=== PATIENT | female | born 1960 | race Caucasian/White ===

== ENCOUNTER → 2017-01-11 | Outpatient (CLI) | payer OTHER ==
[~2017-01-11] MED LIST: AMLODIPINE BESY10 MG PO; AMOXICILLIN500 M1 PO; ASPIRIN EC81 M1 PO; BENZONATATE PO; CINNAMON BARK1 GM; CINNAMON PO; FISH OIL 1,001000 MG PO; FUROSEMIDE40 MG PO; GLUCOTROL PO; HYDRALAZINE HCL50 MG PO; KIONEX PO; LOVASTATIN20 M2 PO; METOPROLOL TAR100 MG PO; OMEPRAZOLE20 M1 PO; PRINIVIL20 M1 PO; ZYLOPRIM100 MG PO
[2017-01-11 15:31] LABS: ALBUMIN SERUM 4.4 g/dL (3.5-5.0); BILIRUBIN,TOTAL 0.7 mg/dL (0.2-2.0); BUN/CREATININE RATIO 17.4; CALCIUM SERUM 12.3 mg/dL (8.4-10.2); CREATININE SERUM 2.7 mg/dL (0.6-1.4); GLOM FILT RATE Estimated 18.7 mL/min (>60); PHOSPHOROUS 3.7 mg/dL (2.5-4.6); POTASSIUM 3.9 mmol/L (3.5-5.1); PROTEIN TOTAL SERUM 8.1 g/dL (6.0-8.3); URIC ACID 5.7 mg/dL (2.6-7.2)
[2017-01-15 09:25] LABS: CALCIUM (PTHINTACT) 12.3 mg/dL (8.6-10.4)
== END | disposition home or self-care (01) ==
LOC: CLAB 14:50
PROVIDERS: Internal Medicine Nephrology
DX: N18.3 Chronic kidney disease, stage 3 (moderate) (principal); N25.81 Secondary hyperparathyroidism of renal origin
CPT/HCPCS: 36415; 80053; 82310; 83970; 84100; 84550